=== PATIENT | female | born 1995 | race Caucasian/White ===

== ENCOUNTER 2024-02-07 18:34 | Emergency (ER) | payer OTHER, SELFPAY ==
--- NOTE | ~2024-02-07 | US_ITS ---
EXAMINATION: US ABDOMEN LIMITED CLINICAL INFORMATION: Right upper quadrant pain. Vomiting. COMPARISON: None available. TECHNIQUE: Real-time imaging of the right upper quadrant abdominal viscera. FINDINGS: PANCREAS: The visualized pancreas is normal in appearance. The tail is obscured by overlying bowel gas. LIVER: The liver is normal in size. The liver contour is normal. Parenchymal echogenicity is normal. No focal hepatic lesion. There is no intrahepatic biliary duct dilatation seen. GALLBLADDER: The gallbladder is physiologically distended without evidence of stones, sludge, polyps, wall thickening or pericholecystic fluid. COMMON BILE DUCT: Normal in caliber measuring 0.3 cm in diameter. RIGHT KIDNEY: Normal. No hydronephrosis. No renal calculi or focal parenchymal lesions. The kidney measures 10.4 cm in maximum dimension. FREE FLUID: None. US/US abdomen limited IMPRESSION: The gallbladder is normal in appearance.
[2024-02-07 18:39] VITALS: BP 141/58; PULSE 97; RESP 20; TEMP 36.1; O2SAT 100; BMI 32.9
--- NOTE | 2024-02-07 19:43 | ED.NAVMDI ---
HPI - Nausea/Vomiting/Diarrhea General Chief complaint: Abdominal Pain Stated complaint: vomiting blood Time Seen by Provider: 02/07/24 21:04 Source: patient Mode of arrival: ambulatory Limitations: no limitations History of Present Illness ED Provider: EDEL CAMPOVERDE Narrative: 28 yo female with 10+ years of GI issues managed by [facility] due for endoscopy and colonoscopy February 13 on zofran scheduled and pantoprazole 40mg BID has been vomiting on and off for over a month has been to [facility] and [facility]. States she has not had gastric emptying study yet. Is being worked up for autoimmune ds after being told her ESR was 15 and CRP was 9. She states she has not smoked THC in 4 weeks. She comes in after vomiting so much she has noted dark brown emesis. She has been to [facility] multiple times and has waited at [facility] but she still is not better. No one has changed her home nausea medications. MD elicited complaint: nausea, vomiting, diarrhea and abdominal pain Pertinent past history: cyclical vomiting Onset (ago): month(s) (1) Description of vomiting: watery, bilious and coffee grounds Description of diarrhea: mucus, watery and other (yellow) Associated nausea: Yes Associated abdominal pain: Yes Location of pain: diffuse Radiation: diffuse Pain consistency: constant Severity: severe Quality: cramping Exacerbating factors: eating Relieving factors: none Context: marijuana use and other (chronic issue) Associated symptoms: loss of appetite, malaise and nausea/vomiting Treatment prior to arrival: other (PPI and zofran) Related Data Previous Rx's ?Medication ?Instructions ?Recorded metoclopramide HCl 10 mg tablet 10 mg PO Q6H PRN nausea and 02/07/24 (Reglan) vomiting #30 tabs Allergies Allergy/AdvReac Type Severity Reaction Status Date / Time Sulfa (Sulfonamide Allergy Unknown Verified 02/07/24 18:41 Antibiotics) Review of Systems Review of Systems: Constitutional : No Weight loss, No Fever, No Chills ENT/Mouth : No sore throat, No Rhinorrhea Eyes: No Swelling, No Redness Cardiovascular : No Chest Pain, No SOB, NoEdema Respiratory : No Cough, No Sputum, No Wheezing Gastrointestinal : Positive Nausea, Positive Vomiting, positive Diarrhea, positive abdominal Pain, No Hematochezia, No Melena Genitourinary : No Dysuria, No Urinary Frequency, No Hematuria, No Urgency Musculoskeletal : No joint pain, No Myalgias, No Joint Swelling Skin : No Skin Lesions, No rash Neuro : No Weakness, No Numbness, No Dizziness, No Headache Psych : No Anxiety/Panic, No Depression All other systems reviewed and are negative. Gastrointestinal: Gastrointestinal: Reports nausea PMFSH Past Medical History Attestation statement: The following information was validated with the patient. Source: old records reviewed Medical History (Updated 02/07/24 @ 23:48 by Ashely Woods DO) GERD (gastroesophageal reflux disease) Cyclical vomiting Social History Social History Smoked in Last 30 Days: No Use of substances other than those prescribed or required for medical reasons: Yes Substance Use Type: Marijuana Advance Directives: No Advance Directives Information Provided: No Do you have a plan to hurt others: No Plan Physical Exam Vital Signs: Vital Signs: Last Vital Signs Temp 98.3 F 02/08/24 00:12 Pulse 87 02/08/24 00:12 Resp 16 02/08/24 00:12 BP 130/77 02/08/24 00:12 Pulse Ox 100 02/08/24 00:12 O2 Del Method Room Air 02/08/24 00:12 BMI result Body Mass Index 32.9 Appearance: Alert. Oriented X3. No acute distress. Eyes: Pupils equal, round and reactive to light. ENT: Pharynx normal. Neck: Normal inspection. Neck supple. CVS: Normal heart rate and rhythm. Pulses normal. Respiratory: No respiratory distress. Breath sounds normal. Abdomen: Soft and diffusely ttp no rebound Skin: Skin warm and dry. Normal skin color. Normal skin turgor. Extremities: No lower extremity edema. Neuro: Oriented X 3. No motor deficit. No sensory deficit. Course Course Course Narrative: This is a Rapid Medical Examination (RME) performed by Feliciano Nobles PA-C in triage. Full HPI, ROS, assessment and treatment plan per primary provider in the Main ED. 28 yo female presenting to the ER for evaluation of N/V x1 month along with intermittent hematemesis, RUQ and epigastric pain. Seen at [facility] ED and had normal CT scan on 01/24. Seen by GI and plan for EGD/colonoscopy end of the month. stopped smoking marijuana 1 month ago per report. developed bloody vomit while in the [facility] at [facility] today so came here for evaluation Plan: labs, utox, upreg, RUQ U/S - [facility] records. Medications Administered Discontinued Medications Generic Name Dose Route Start Last Admin Trade Name Sanju PRN Reason Stop Dose Admin Droperidol 1.25 mg 02/07/24 21:16 02/07/24 21:49 Droperidol 5 Mg/2 Ml Vial IVPUSH 02/07/24 21:17 1.25 mg ONCE ONE Administration Famotidine 20 mg 02/07/24 21:16 02/07/24 21:49 Famotidine/Pf 20 Mg/2 Ml Vial IVPUSH 02/07/24 21:17 20 mg ONCE ONE Administration Sodium Chloride 1,000 mls @ 999 mls/hr 02/07/24 21:16 02/07/24 23:00 Ns IV 02/07/24 22:16 Infused .Q1H1M ONE Infusion Morphine Sulfate 4 mg 02/07/24 21:16 02/07/24 21:49 Morphine Sulfate 4 Mg/Ml Cartridge IVPUSH 02/07/24 21:17 4 mg ONCE ONE Administration Protocol Medical Decision Making Medical Decision Making MDM Narrative: 28 yo female with hx of 10+ years of cyclical vomiting, GERD has had GI work up through [facility] and has no formal dx but they continue to pursue other avenues now she is being evaluated for possible autoimmune. She states she has no triggers other than food . At this time she now reports vomiting blood - not on thinners. Her VS are stable H/H is stable. Will start on pepcid, droperidol and morphine and reassess. She is still testing positive for THC though states she stopped a month ago. She has close ENDO and colo follow up through her GI doctor. BUN H/H are normal I do not think she requires emergent admission for endo or colo here. Differential Diagnosis Differential Diagnoses: The differential diagnosis associated with the presentation includes cyclical vomiting syndrome, GERD, gastritis, MW tear, delay in gastric emptying Admission/Observation Consideration of admission/observation: Escalation of care including admission/observation considered H/H stable BUN stable feels much better stable for DC Lab Data [facility] Lab Attestation statement: I reviewed the patient's lab results. 02/07/24 19:55 02/07/24 19:55 Labs: Lab Results 02/07/24 02/07/24 02/07/24 Range/Units 19:55 20:01 20:02 WBC 10.7 (4.8-10.8) X10*3/uL RBC 4.55 (4.20-5.50) X10*6/uL Hgb 14.0 (12.0-16.0) g/dl Hct 39.9 (37.0-47.0) % MCV 87.7 (80.0-98.0) fL MCH 30.8 (27.0-33.0) pg MCHC 35.1 H (31.0-35.0) g/dl RDW 12.2 (11.0-16.0) % Plt Count 445 H (160-400) X10*3/uL MPV 9.5 (9.4-12.3) fL Immature Gran % (Auto) 0.4 (0.0-0.4) % Neut % (Auto) 65.7 (45-73) % Lymph % (Auto) 23.8 (20-40) % [place] % (Auto) 9.2 (2-11) % Eos % (Auto) 0.4 (0-4) % Baso % (Auto) 0.5 (0-2) % Lymph # (Auto) 2.6 (1.2-4.9) X10*3/uL [place] # (Auto) 1.0 (0.1-1.2) X10*3/uL Eos # (Auto) 0.0 (0.0-0.4) X10*3/uL Baso # (Auto) 0.1 (0.0-0.2) X10*3/uL Abs Immat Gran (auto) 0.04 H (0.00-0.03) X10*3/uL Absolute Neuts (auto) 7.1 (2.0-8.3) x10*3/uL Absolute Nucleated RBC 0.000 (0.0-0.012) X10*3/uL Nucleated RBC % (auto) 0.0 (0.0-0.2) /100WBC Sodium 142 (135-145) mmol/L Potassium 3.7 (3.3-5.1) mmol/L Chloride 108 (96-108) mmol/L Carbon Dioxide 22 (22-29) mmol/L Anion Gap 16 (12-20) BUN 12 (9-16) mg/dL Creatinine 0.77 (0.5-1.4) mg/dL Estim Creat Clear Calc 109.6 Estimated GFR > 60 Random Glucose 84 (60-115) mg/dL Calcium 9.7 (8.4-10.2) mg/dL Magnesium 2.0 (1.6-2.6) mg/dL Total Bilirubin 0.5 (0.0-1.0) mg/dL Direct Bilirubin 0.2 (0.0-0.5) mg/dL AST 18 (5-31) U/L ALT 13 (0-31) U/L Alkaline Phosphatase 50 (39-117) U/L Total Protein 8.1 H (6.5-8.0) g/dL Albumin 4.5 (3.5-5.0) g/dL Lipase 22 (8-78) U/L Urine Color Dark Yellow Urine Appearance Cloudy Urine pH 6.0 (5.0-9.0) Ur Specific [place] >= 1.030 H (1.005-1.025) Urine Protein 30 (1+) H (Neg-Trace) mg/dL Urine Glucose (UA) Negative (Negative) mg/dL Urine Ketones 80 (Negative) mg/dL Urine Blood Negative (Negative) Urine Nitrite Negative (Negative) Ur Leukocyte Esterase Trace H (Negative) Urine RBC 0-2 (0-2) /HPF Urine WBC 6-10 H (0-5) /HPF Ur Squamous Epith Cells >20 (0-2) /HPF Urine Bacteria 3+ (None Seen) Hyaline Casts 0-2 (0-2) /LPF Urine Test NEGATIVE (NEGATIVE) Urine Opiates Screen Not Detected (Not Detect) Ur Buprenorphine Scrn Not Detected (Not Detect) ng/mL Ur Oxycodone Screen Not Detected (Not Detect) ng/mL Urine Methadone Screen Not Detected (Not Detect) ng/mL Urine Fentanyl Screen Not Detected (Not Detect) Ur Barbiturates Screen Not Detected (Not Detect) Ur Phencyclidine Scrn Not Detected (Not Detect) Ur Amphetamines Screen Not Detected (Not Detect) U Benzodiazepines Scrn Not Detected (Not Detect) Urine Cocaine Screen Not Detected (Not Detect) U Marijuana (THC) Screen POSITIVE H (Not Detect) Ethyl Alcohol < 10 mg/dL Independent Interpretation I performed an independent interpretation of an: EKG Interpretation: Rate: 81 Rhythm: NSR [place]: normal Normal P waves. Normal CHARAN. Normal QRS complex. ST T wave : normal no TRICIA qTC: 448 prior studies: no acute ischemia The study has been interpreted contemporaneously by me. . Independent Historian Clinical information obtained from an independent historian. History obtained from or confirmed by: Spouse External Record Review External record reviewed: Outpatient record Prescription Management I considered prescription management with: Other Critical Care Time Critical Care Time Critical Care Time: Yes Total Critical Care Time: 35 Attestation: improvement with IV morphine, review of records I attest to this time spent taking care of the patient Discharge Plan Discharge Clinical Impression: Cyclical vomiting Gastritis Qualifiers: Gastritis type: unspecified gastritis Chronicity: acute Gastritis bleeding: with bleeding Qualified Code(s): K29.01 - Acute gastritis with bleeding Patient Disposition: Home, Self-Care Instructions: Gastritis (ED), Acute Nausea and Vomiting (ED) Additional Instructions: continue your pantoprazole your hemoglobin was stable and normal your labs were reassuring call your doctor in the morning hold the zofran and start reglan for vomiting return for any worsening symptoms or concerns. Prescriptions: New metoclopramide HCl [Reglan] 10 mg tablet 10 mg PO Q6H PRN (Reason: nausea and vomiting) Qty: 30 0RF Interventions: ED Discharge Assessment Last Done: 02/08/24 00:12 Discharge Date/Time: 02/08/24 00:15 Print Language: Yakut
[2024-02-07 20:00] LABS: MANUAL DIFF FLAG NO
[2024-02-07 20:06] LABS: Basophils Absolute Auto 0.1 X10*3/uL (0.0-0.2); Basophils Percent Auto 0.5 % (0-2); Eosinophils Percent Auto 0.4 % (0-4); Hematocrit 39.9 % (37.0-47.0); Imm Gran Abs Auto 0.04 X10*3/uL (0.00-0.03); Imm Gran Pct Auto 0.4 % (0.0-0.4); Lymphocytes Absolute Auto 2.6 X10*3/uL (1.2-4.9); Lymphocytes Percent Auto 23.8 % (20-40); Mean Corpuscular HGB Conc 35.1 g/dl (31.0-35.0); Mean Corpuscular Hemoglobin 30.8 pg (27.0-33.0); Mean Corpuscular Volume 87.7 fL (80.0-98.0); Mean Platelet Volume 9.5 fL (9.4-12.3); Monocytes Percent Auto 9.2 % (2-11); Neutrophils Absolute Auto 7.1 x10*3/uL (2.0-8.3); Neutrophils Percent Auto 65.7 % (45-73); Platelet Count 445 X10*3/uL (160-400); Red Blood Count 4.55 X10*6/uL (4.20-5.50); Red Cell Distribution Width 12.2 % (11.0-16.0); White Blood Count 10.7 X10*3/uL (4.8-10.8)
[2024-02-07 20:13] LABS: Appearance Urine Cloudy; Color Urine Dark Yellow; Glucose Urine UA Negative (Negative); Leukocyte Esterase Urine Trace (Negative); Nitrite Urine Negative (Negative); Specific Gravity - Urine >= 1.030 (1.005-1.025); UMIC TRIGGER UACC YES; Urine Blood Negative (Negative); Urine Ketones 80 mg/dL (Negative); Urine Protein 30 (1+) mg/dL (Neg-Trace)
[2024-02-07 20:15] LABS: UPreg QC Valid YES; Urine Pregnancy NEGATIVE (NEGATIVE)
[2024-02-07 20:17] LABS: Alanine Aminotransferase 13 U/L (0-31); Albumin Level 4.5 g/dL (3.5-5.0); Alkaline Phosphatase 50 U/L (39-117); Anion Gap 16 (12-20); Aspartate Amino Transferase 18 U/L (5-31); Bilirubin Direct 0.2 mg/dL (0.0-0.5); Bilirubin Total 0.5 mg/dL (0.0-1.0); Blood Urea Nitrogen 12 mg/dL (9-16); Calcium 9.7 mg/dL (8.4-10.2); Carbon Dioxide 22 mmol/L (22-29); Chloride 108 mmol/L (96-108); Creatinine Clr Calc Pharmacy 109.6; Estimated Glomerular Filt Rate > 60; Ethanol < 10 mg/dL; Glucose Random 84 mg/dL (60-115); Lipase 22 U/L (8-78); Potassium 3.7 mmol/L (3.3-5.1); Sodium 142 mmol/L (135-145); Total Protein 8.1 g/dL (6.5-8.0)
[2024-02-07 20:21] LABS: Bacteria Urine 3+ (None Seen); Hyaline Casts Urine 0-2 /LPF (0-2); RBC Urine 0-2 /HPF (0-2); Squamous Epithelial Cell Urine >20 /HPF (0-2); UACC Culture Trigger YES
[2024-02-07 20:28] LABS: Amphetamine Screen Urine Not Detected (Not Detect); Barbiturates, Urine Not Detected (Not Detect); Benzodiazepines Screen Urine Not Detected (Not Detect); Buprenorphine Scr Not Detected (Not Detect); Cannabinoid Screen Urine POSITIVE (Not Detect); Cocaine Screen Urine Not Detected (Not Detect); Fentanyl, urine Not Detected (Not Detect); Methadone Screen, Urine Not Detected (Not Detect); Opiate Screen Urine Not Detected (Not Detect); Oxycodone Screen Urine Not Detected (Not Detect); Phencyclidine Screen Urine Not Detected (Not Detect)
[2024-02-07 20:34] VITALS: BP 118/74; PULSE 83; RESP 14; TEMP 37.2; O2SAT 99
--- NOTE | 2024-02-07 21:22 | ECG_ITS ---
Test Reason : ABDOMINAL PAIN Blood Pressure : / mmHG Vent. Rate : 081 BPM Atrial Rate : 081 BPM P-R Int : 146 ms QRS Dur : 088 ms QT Int : 386 ms P-R-T Axes : 056 028 049 degrees QTc Int : 448 ms Normal sinus rhythm with sinus arrhythmia Normal ECG No previous ECGs available Referred By: Ashely Woods Electronically Signed By:LAYTON AIKEN MD
--- NOTE | 2024-02-07 21:31 | PC.NURSE ---
Pt ca&ox4, no signs of distress. Pt reports red vomit, and 8/10 abd pain. Pts fam @ beside. EKG completed Plan of care ongoing.
[2024-02-07 21:49] VITALS: RESP 16
[2024-02-07] MEDS: droPERidol 5 MG/2 ML VIAL 1.25 MG IVPUSH (21:49)
[2024-02-07] MEDS: Famotidine/PF 20 MG/2 ML VIAL IVPUSH (21:49)
[2024-02-07] MEDS: Morphine Sulfate 4 MG/ML CARTRIDGE IVPUSH (21:49)
[2024-02-07] MEDS: 0.9 % Sodium Chloride 1,000 ML 999 ML IV (21:50)
--- NOTE | 2024-02-07 21:57 | PC.NURSE ---
Pt medicated per sep. Plan of care ongoing.
[2024-02-07 23:07] VITALS: BP 116/78; PULSE 85; RESP 14; TEMP 36.9; O2SAT 99
[2024-02-07 23:25] VITALS: RESP 12
[2024-02-08 00:12] VITALS: BP 130/77; PULSE 87; RESP 16; TEMP 36.8; O2SAT 100
== END 2024-02-08 00:15 | disposition home or self-care (01) ==
PROVIDERS: Physician Assistant; Emergency Provider Emergency Medicine; PCP Nurse Practitioner Family
DX: R11.15 Cyclical vomiting syndrome unrelated to migraine (principal); K29.01 Acute gastritis with bleeding; I49.8 Other specified cardiac arrhythmias; R11.2 Nausea with vomiting, unspecified; R10.11 Right upper quadrant pain; Z79.899 Other long term (current) drug therapy; Z51.81 Encounter for therapeutic drug level monitoring
CPT/HCPCS: 36415; 76705; 80048; 80076; 80307; 81001; 81025; 83690; 83735; 85025; 87086; 93005; 96361; 96374; 96375; 99284; 99285; J1790; J2270

== ENCOUNTER → 2024-02-07 21:22 | Outpatient (BNV) | payer OTHER, SELFPAY | PROVIDERS: Emergency Provider Emergency Medicine; PCP Nurse Practitioner Family; Visit Provider Internal Medicine Cardiovascular Disease | DX: R10.9 Unspecified abdominal pain (principal) | CPT/HCPCS: 93010 ==